=== PATIENT | female | born 1990 ===

== ENCOUNTER 2017-03-21 22:19 | Emergency (ER) | payer OTHER ==
[2017-03-21 22:25] VITALS: BP 105/68; PULSE 90; RESP 16; TEMP 98.1; O2SAT 99
--- NOTE | 2017-03-21 23:22 | ED PDOC ---
Lower Extremity Pain/Injury Time Seen by Provider: 03/21/17 22:28 Chief Complaint (Nursing): Lower Extremity Problem/Injury Chief Complaint (Provider): knee injury History Per: Patient History/Exam Limitations: no limitations Additional Complaint(s): 26yo F in ED for eval of right knee injury sustained today after being pulled by her dog-feeling her knee give out and be displaced. took alieve and ice area painful with pressure on knee. swelling decreased. able to range knee but not fully no numbness or tingling to LE no hip pain. hx of displacing knee. - Risk Factors DVT Risk Factors: Pos: None Past Medical History Reviewed: Historical Data, Nursing Documentation, Vital Signs Vital Signs: Last Vital Signs Temp 98.1 F 03/21/17 22:23 Pulse 90 03/21/17 22:23 Resp 16 03/21/17 22:23 BP 105/68 03/21/17 22:23 Pulse Ox 99 03/21/17 22:23 - Medical History PMH: No Chronic Diseases - Surgical History Surgical History: Appendectomy, Tonsillectomy - Family History Family History: States: No Known Family Hx - Home Medications Home Medications: Ambulatory Orders Medication Instructions Recorded Cyclobenzaprine [Cyclobenzaprine 10 mg PO BID #14 tab 03/21/17 HCl] - Allergies Allergies/Adverse Reactions: Allergies Allergy/AdvReac Type Severity Reaction Status Date / Time No Known Allergies Allergy Verified 03/21/17 22:25 Review of Systems ROS Statement: Except As Marked, All Systems Reviewed And Found Negative Musculoskeletal: Positive for: Leg Pain Physical Exam - Reviewed Nursing Documentation Reviewed: Yes Vital Signs Reviewed: Yes - Physical Exam Appears: Positive for: Well, Non-toxic, No Acute Distress Skin: Positive for: Normal Color, Warm, DRY Extremity: Positive for: Other (right knee: (+) anika test, (-) aphrenision test, no effusion no swelling no calf tendneress) Neurologic/Psych: Positive for: Alert, Oriented - ECG O2 Sat by Pulse Oximetry: 99 Medical Decision Making Medical Decision Making: knee injur-most liekly pt with meniscus injury, placed in knee immoblizer and given flexril for muscle -pt took alieve prior to Ed arrival and states she was nauseous due to pain-given zofnra. Advised to have motrin for pain ortho RICE instruction and f.u with orthopedics. Disposition - Clinical Impression Clinical Impression: Knee injury - Patient ED Disposition Is Patient to be Admitted: No Counseled Patient/Family Regarding: Diagnosis, Need For Followup, Rx Given - Disposition Referrals: [facility] [Outside] [facility] [place] [Outside] Elisha Pickens MD [Staff Provider] - Disposition: Routine/Home Disposition Time: 23:26 Condition: STABLE Additional Instructions: use either motrin or naproxen for pain. Prescriptions: Cyclobenzaprine [Cyclobenzaprine HCl] 10 mg PO BID #14 tab Instructions: Knee Pain (ED) Forms: [facility] School/Work Excuse
== END 2017-03-21 23:35 | disposition home or self-care (01) ==
LOC: H.ER 22:19
DX: S89.92XA Unspecified injury of left lower leg, initial encounter (principal); X50.9XXA Other and unspecified overexertion or strenuous movements or postures, initial encounter; Y92.89 Other specified places as the place of occurrence of the external cause